=== PATIENT | female | born 1995 | race Caucasian/White ===

== ENCOUNTER → 2016-10-31 | Outpatient (CLI) | payer OTHER ==
[~2016-10-31] VITALS: Ht 167.6 cm; Wt 80.0 kg
[~2016-10-31] MED LIST: ADVAIR HFA120 INHALA IH; ALBUTEROL SULF8.5 GM IH; AZITHROMYCIN500 M1 PO; FLONASE16 G1 BOTH NARES; GUAIFENESIN WI120 M1 PO; MONTELUKAST SOD10 MG PO; MUCINEX600 MG PO; NAPROSYN500 MG PO; PREDNISONE10 MG PO; PREDNISONE50 MG PO; PRENATAL TABLE1 EAC3 PO; PROAIR RESPICL90 MCG IH; SPIRIVA RESPIMAT4 GM IH; ZYRTEC10 M3 PO
[2016-10-31 11:34] VITALS: BP 127/68
== END | disposition home or self-care (01) ==
LOC: IVINF 11:00
DX: Z31.82 Encounter for Rh incompatibility status (principal)
CPT/HCPCS: 96372; J2790

== ENCOUNTER 2017-01-29 09:31 | Inpatient (IN) | payer OTHER ==
[~2017-01-29] VITALS: Ht 165.1 cm; Wt 89.1 kg
[2017-01-29] VITALS (15 sets, daily range): BP systolic 118–142; BP diastolic 56–84
[2017-01-29] MEDS ORDERED: ACID CONTROL150 MG PO (10:03)
[2017-01-29 10:43] LABS: BASOPHIL COUNT 0.1 K/uL (0-0.1); EOSINOPHIL COUNT 0.1 K/uL (0-0.3); IMMATURE GRANULOCYTE (%) 0.6 % (0.0-0.7); IMMATURE GRANULOCYTE COUNT 0.1 K/uL; INSTRUMENT ABS NEUTROPHIL CT 10.6 K/uL; LYMPHOCYTE COUNT 1.7 K/uL (1.0-2.8); MCH 28.1 PG (29.0-34.0); MCHC 31.7 G/DL (30.0-36.0); MCV 88.9 FL (83-99); MEAN PLAT.VOLUME 10.9 uM^3 (9.5-12.4); MONOCYTE (%) 5.7 % (3-12); MONOCYTE COUNT 0.8 K/uL (0-0.8); NEUTROPHIL (%) 79.7 % (45-76); NEUTROPHIL COUNT 10.6 K/uL (1.8-6.4); PLATELET COUNT 355 K/uL (156-360); RBC DIS.WIDTH-CV 13.4 % (11.8-14.6); RBC DIS.WIDTH-SD 43.8 % (39-53); RED BLOOD COUNT 4.05 M/uL (3.80-5.20); WHITE BLOOD COUNT 13.3 K/uL (4.1-10.2)
[2017-01-29 17:03] LABS: AMPHETAMINES QUANT VALUE 0 NG/ML; BARBITUATES QUANT VALUE 0 NG/ML; BENZODIAZEPINES QUANT VALUE 0 NG/ML; BENZODIAZEPINES, URINE SCREEN Negative (200 ng/mL); OPIATES QUANTITATIVE VALUE 0 NG/ML; PHENCYCLIDINE QUANT VALUE 0 NG/ML
[2017-01-30] VITALS (10 sets, daily range): BP systolic 122–149; BP diastolic 60–86
[2017-01-31 07:28] VITALS: BP 134/67
[2017-01-31 07:52] LABS: EOSINOPHIL (%) 1.1 % (0-5); EOSINOPHIL COUNT 0.2 K/uL (0-0.3); HEMATOCRIT 26.1 % (36.0-46.0); IMMATURE GRANULOCYTE (%) 0.6 % (0.0-0.7); IMMATURE GRANULOCYTE COUNT 0.1 K/uL; INSTRUMENT ABS NEUTROPHIL CT 11.7 K/uL; LYMPHOCYTE COUNT 2.1 K/uL (1.0-2.8); MCH 28.3 PG (29.0-34.0); MCHC 31.8 G/DL (30.0-36.0); MCV 89.1 FL (83-99); MONOCYTE (%) 5.3 % (3-12); MONOCYTE COUNT 0.8 K/uL (0-0.8); NEUTROPHIL (%) 78.5 % (45-76); NEUTROPHIL COUNT 11.7 K/uL (1.8-6.4); PLATELET COUNT 264 K/uL (156-360); RBC DIS.WIDTH-SD 45.1 % (39-53); WHITE BLOOD COUNT 14.9 K/uL (4.1-10.2)
[2017-01-31 07:55] LABS: RED BLOOD COUNT 2.93 M/uL (3.80-5.20)
[2017-01-31] MEDS ORDERED: DOCUSATE SODIU100 MG PO (11:53)
[2017-01-31] MEDS ORDERED: IBUPROFEN800 MG PO (11:53)
[2017-01-31] MEDS ORDERED: FERROCITE324 MG PO (11:54)
== END 2017-01-31 13:20 | disposition home or self-care (01) | DRG 775 ==
LOC: LDRP-OP 09:31 → 2WEST 09:32 → LDRP-OP 03-05 12:35
PROVIDERS: Advanced Practice Midwife
DX: O70.0 First degree perineal laceration during delivery (principal); O77.0 Labor and delivery complicated by meconium in amniotic fluid; O69.81X0 Labor and delivery complicated by cord around neck, without compression, not applicable or unspecified; O42.92 Full-term premature rupture of membranes, unspecified as to length of time between rupture and onset of labor; O99.214 Obesity complicating childbirth; E66.9 Obesity, unspecified; O99.62 Diseases of the digestive system complicating childbirth; K21.9 Gastro-esophageal reflux disease without esophagitis; O99.52 Diseases of the respiratory system complicating childbirth; J45.909 Unspecified asthma, uncomplicated; O99.324 Drug use complicating childbirth; F12.90 Cannabis use, unspecified, uncomplicated; Z87.891 Personal history of nicotine dependence; Z68.29 Body mass index [BMI] 29.0-29.9, adult; Z23 Encounter for immunization; Z3A.40 40 weeks gestation of pregnancy; Z37.0 Single live birth
CPT/HCPCS: 80306 90; 83030; 85025; 86850; 86900; 86901; 90686; 99202; J2405; J2790; J3010; J7120

== ENCOUNTER 2017-12-09 16:57 | Emergency (ER) | payer OTHER ==
[~2017-12-09] VITALS: Ht 165.1 cm; Wt 78.9 kg
[~2017-12-09 16:57] MED LIST changes: +ACID CONTROL150 MG PO; +DOCUSATE SODIU100 MG PO; +FERROCITE324 MG PO; +IBUPROFEN800 MG PO
[2017-12-09 18:08] LABS: HEMATOCRIT 36.9 % (36.0-46.0); HEMOGLOBIN 13.1 G/DL (11.9-15.5); MCH 29.8 PG (29.0-34.0); MCHC 35.5 G/DL (30.0-36.0); MCV 84.1 FL (83-99); PLATELET COUNT 316 K/uL (156-360); RBC DIS.WIDTH-CV 13.9 % (11.8-14.6); RBC DIS.WIDTH-SD 42.8 % (39-53); RED BLOOD COUNT 4.39 M/uL (3.80-5.20); WHITE BLOOD COUNT 11.3 K/uL (4.1-10.2)
[2017-12-09 18:16] LABS: ALBUMIN 4.5 g/dL (3.2-4.8)
[2017-12-09 18:17] LABS: CHLORIDE 104 mEq/L (99-109); POTASSIUM 3.4 mEq/L (3.7-5.4); SODIUM 137 mEq/L (136-147)
[2017-12-09 18:19] LABS: GLUCOSE 91 mg/dL (70-99); TOTAL PROTEIN 8.1 g/dL (6.4-8.3)
[2017-12-09 18:21] LABS: TOTAL BILIRUBIN 0.5 mg/dL (0.0-1.0)
[2017-12-09 18:22] LABS: ALKALINE PHOSPHATASE 90 IU/L (3-129)
[2017-12-09 18:23] LABS: CREATININE 0.9 mg/dL (0.6-1.3); GFR ESTIMATE (CALCULATED) > 59 mL/min/
[2017-12-09 18:24] LABS: AST (GOT) 80 IU/L (2-34); UREA NITROGEN (BUN) 7 mg/dL (9-23)
[2017-12-09 18:25] LABS: ALT (GPT) 96 IU/L (3-49)
[2017-12-09 18:49] LABS: LIPASE 29 U/L (1.0-51.0)
[2017-12-09 19:12] LABS: APPEARANCE SL.HAZY ((CLEAR)); BILIRUBIN NEGATIVE; BLOOD NEGATIVE; COLOR YELLOW ((YELLOW)); GLUCOSE (STRIP) NEGATIVE; KETONES NEGATIVE; LEUKOCYTES SMALL; NITRITE NEGATIVE; PROTEIN (STRIP) NEGATIVE; SPECIFIC GRAVITY 1.011 (1.000-1.030); UROBILINOGEN 0.2 MG/DL (0.2-1.0)
[2017-12-09 19:19] LABS: QUANTITATIVE HCG 28600.9 MIU/ML
[2017-12-09 19:59] LABS: BACTERIA RARE /HPF; EPITHELIAL CELLS RARE /HPF; MUCUS TRACE /LPF; RED BLOOD CELLS 0-5 /HPF (0-5); UCUL ADDED? NO; WHITE BLOOD CELLS 0-5 /HPF (0-5)
[2017-12-09] MEDS ORDERED: ZOFRAN ODT4 MG PO (20:53)
[2017-12-09 21:00] VITALS: BP 114/75
== END 2017-12-09 21:01 | disposition home or self-care (01) ==
LOC: EME 16:57
DX: O21.9 Vomiting of pregnancy, unspecified (principal); Z3A.01 Less than 8 weeks gestation of pregnancy; O99.511 Diseases of the respiratory system complicating pregnancy, first trimester; J45.909 Unspecified asthma, uncomplicated
CPT/HCPCS: 80053; 81003; 83690; 84702; 85027; 99281; 99285; J2405; J7030